=== PATIENT | female | born 1950 | race Caucasian/White ===

== ENCOUNTER 2017-12-19 20:17 | Emergency (ER) | payer MEDICARE ==
[~2017-12-19] VITALS: Ht 162.6 cm; Wt 99.8 kg
[~2017-12-19 20:17] MED LIST: ALBU90OI INH; ALBU90OI6 INH; Accuneb1.25 MG/3 INH; CYAN1000 PO; Duoneb 2.5-0.5 M3 ML INH; ERGO400 PO; FISH1000 PO; GINKO BILOBA; IRON; LISI20 PO; PYRI100 PO; Prednisone20 MG PO; Prednisone50 MG PO; Pulmicort Flex90 MCG INH; TOCO400 PO; Ventolin5 MG/1 ML INH; Vitamin C100 M1 PO
[2017-12-19 20:55] LABS: BASOPHILS ABSOLUTE AUTO 0.11 K/mm3 (0.00-0.23); BASOPHILS PERCENT AUTO 1 % (0-2); EOSINOPHILS ABSOLUTE AUTO 0.49 K/mm3 (0.00-0.68); EOSINOPHILS PERCENT AUTO 6 % (0-6); Hematocrit 50.3 % (33.0-51.0); Hemoglobin 16.6 g/dL (11.5-16.0); IMMATURE GRAN ABSOLUTE AUTO 0.02 K/mm3 (0.00-0.10); IMMATURE GRAN PERCENT AUTO 0 % (0-1); LYMPHOCYTES ABSOLUTE AUTO 1.68 K/mm3 (0.84-5.20); LYMPHOCYTES PERCENT AUTO 22 % (21-46); MONOCYTES ABSOLUTE AUTO 0.59 K/mm3 (0.16-1.47); MONOCYTES PERCENT AUTO 8 % (4-13); Mean Corpuscular HGB 30.3 pg (26.0-34.0); Mean Corpuscular Volume 92 fL (80-100); Mean Platelet Volume 10.8 fL (9.1-12.4); NEUTROPHILS ABSOLUTE AUTO 4.78 K/mm3 (1.96-9.15); NEUTROPHILS PERCENT AUTO 62 % (41-73); Platelet Count 217 K/mm3 (150-400); RDW Coefficient Variation 12.8 % (11.7-14.2); RDW Standard Deviation 43.6 fL (35.1-46.3); Red Blood Cell Count 5.47 M/mm3 (3.80-5.20); White Blood Cell Count 7.67 K/mm3 (4.00-11.30)
[2017-12-19 21:15] LABS: Alanine Aminotransfer (ALT/SGP 32 U/L (12-78); Albumin, Blood 3.8 g/dL (3.4-5.0); Albumin/Globulin Ratio 0.8 (0.8-1.8); Alk Phos 79 U/L (50-136); Anion Gap 10 mmol/L (6-16); Aspartate Aminotrans (AST/SGOT 21 U/L (12-37); Bilirubin, Total 0.6 mg/dL (0.1-1.0); Blood Urea Nitrogen 9 mg/dL (8-24); Bun/Creatinine Ratio 12.1 (12.0-20.0); CO2, Blood 27 mmol/L (21-32); Calcium, Blood 9.1 mg/dL (8.5-10.1); Chloride, Blood 102 mmol/L (98-108); Creatinine, Blood 0.74 mg/dL (0.40-1.00); Globulin, Blood 4.6 g/dL (2.2-4.0); Glomerular Filtration Rate >60 (60-); Glucose, Blood 108 mg/dL (70-99); Potassium, Blood 3.6 mmol/L (3.5-5.5); Sodium, Blood 139 mmol/L (136-145); Total Protein, Blood 8.4 g/dL (6.4-8.2); Troponin I <0.015 ng/mL (0.000-0.040)
[2017-12-19 22:06] LABS: Source, Urine Clean Catch
[2017-12-19 22:08] LABS: Bilirubin, Urine Neg (Neg); Blood, Urine Neg (Neg); Glucose Qualitative, Urine Neg (Neg); Ketones, Urine Neg (Neg); Leukocyte Esterase, Urine Neg (Neg); Nitrite, Urine Neg (Neg); Protein, Urine 1+ (Neg); Urobilinogen, Urine NORM (Normal)
[2017-12-19 22:15] LABS: Appearance, Urine Clear (Clear); Color, Urine Yellow (P-Yellow)
[2017-12-19] MEDS ORDERED: Prednisone20 MG PO (23:28)
[2017-12-19] MEDS ORDERED: BENZ100A PO (23:28)
[2017-12-19] MEDS ORDERED: Mucinex600 MG PO (23:28)
[2018-10-25] MEDS ORDERED: ALBU90OI61 INH (19:26)
[2018-10-25] MEDS ORDERED: Prednisone20 MG PO (20:41)
[2018-10-25] MEDS ORDERED: Proventil5 MG/1 ML INH (20:41)
[2018-10-25] MEDS ORDERED: LEVO750 PO (20:41)
== END 2017-12-19 23:45 | disposition home or self-care (01) ==
LOC: ER 20:17
PROVIDERS: Emergency Medicine
DX: J45.901 Unspecified asthma with (acute) exacerbation (principal); Z79.899 Other long term (current) drug therapy; Z87.891 Personal history of nicotine dependence
CPT/HCPCS: 36415; 71046; 80053; 84484; 85025; 93005; 93010; 94640; 96374; 99283; J2930

== ENCOUNTER 2018-05-10 09:54 | Emergency (ER) | payer OTHER, MEDICARE ==
[~2018-05-10] VITALS: Ht 160 cm; Wt 101.6 kg
[~2018-05-10 09:54] MED LIST changes: +BENZ100A PO; +Mucinex600 MG PO
== END 2018-05-10 11:52 | disposition home or self-care (01) ==
LOC: ER 09:54
DX: S80.01XA Contusion of right knee, initial encounter (principal); W22.8XXA Striking against or struck by other objects, initial encounter; Z87.891 Personal history of nicotine dependence
CPT/HCPCS: 73562-RT; 73590; 99283

== ENCOUNTER 2019-09-26 23:15 | Emergency (ER) | payer OTHER ==
[~2019-09-26] VITALS: Ht 162.6 cm; Wt 99.8 kg
[~2019-09-26 23:15] MED LIST changes: +ALBU90OI61 INH; +LEVO750 PO; +Proventil5 MG/1 ML INH
[2019-09-27] MEDS ORDERED: Prednisone20 MG PO (00:13)
[2019-09-27] MEDS ORDERED: Flovent 44 mc10.6 GM INH (00:13)
== END 2019-09-27 00:37 | disposition home or self-care (01) ==
LOC: ER 23:15
DX: J45.901 Unspecified asthma with (acute) exacerbation (principal); Z87.891 Personal history of nicotine dependence
CPT/HCPCS: 94640; 99283-25; J7512

== ENCOUNTER 2022-05-26 04:54 | Emergency (ER) | payer MEDICARE, OTHER ==
[~2022-05-26] VITALS: Ht 162.6 cm; Wt 108.9 kg
[~2022-05-26 04:54] MED LIST changes: +Flovent 44 mc10.6 GM INH
[2022-05-26] MEDS ORDERED: PRED20 PO (08:06)
== END 2022-05-26 08:15 | disposition home or self-care (01) ==
LOC: ER 04:54
DX: J45.901 Unspecified asthma with (acute) exacerbation (principal); Z79.52 Long term (current) use of systemic steroids; Z79.899 Other long term (current) drug therapy
CPT/HCPCS: 71045; 94640; 94644; 94645; 94664; 99285-25; J7512

== ENCOUNTER 2022-09-26 11:38 | Emergency (ER) | payer MEDICARE, OTHER ==
[~2022-09-26] VITALS: Ht 160 cm; Wt 108.0 kg
[~2022-09-26 11:38] MED LIST changes: +PRED20 PO
[2022-09-26 12:44] LABS: BASOPHILS ABSOLUTE AUTO 0.12 K/mm3 (0.00-0.23); BASOPHILS PERCENT AUTO 2 % (0-2); EOSINOPHILS ABSOLUTE AUTO 1.12 K/mm3 (0.00-0.68); EOSINOPHILS PERCENT AUTO 15 % (0-6); Hematocrit 46.3 % (33.0-51.0); Hemoglobin 15.2 g/dL (11.5-16.0); IMMATURE GRAN ABSOLUTE AUTO 0.01 K/mm3 (0.00-0.10); IMMATURE GRAN PERCENT AUTO 0 % (0-1); LYMPHOCYTES ABSOLUTE AUTO 1.61 K/mm3 (0.84-5.20); LYMPHOCYTES PERCENT AUTO 21 % (21-46); MONOCYTES ABSOLUTE AUTO 0.77 K/mm3 (0.16-1.47); MONOCYTES PERCENT AUTO 10 % (4-13); Mean Corpuscular HGB Conc 32.8 g/dL (31.5-36.5); Mean Corpuscular Volume 95 fL (80-100); Mean Platelet Volume 10.6 fL (9.1-12.4); NEUTROPHILS ABSOLUTE AUTO 4.09 K/mm3 (1.96-9.15); NEUTROPHILS PERCENT AUTO 53 % (41-73); Platelet Count 197 K/mm3 (150-400); RDW Coefficient Variation 13.4 % (11.7-14.2); RDW Standard Deviation 47.3 fL (35.1-46.3); White Blood Cell Count 7.72 K/mm3 (4.00-11.30)
[2022-09-26 13:02] LABS: Albumin, Blood 3.3 g/dL (3.4-5.0); Albumin/Globulin Ratio 0.7 (0.8-1.8); Bilirubin, Total 0.5 mg/dL (0.1-1.0); Bun/Creatinine Ratio 14.3 (12.0-20.0); Calcium, Blood 9.1 mg/dL (8.5-10.1); Creatinine, Blood 0.84 mg/dL (0.40-1.00); Globulin, Blood 4.5 g/dL (2.2-4.0); Potassium, Blood 3.9 mmol/L (3.5-5.5); Total Protein, Blood 7.8 g/dL (6.4-8.2)
[2022-09-26] MEDS ORDERED: PRED20 PO (13:44)
== END 2022-09-26 14:08 | disposition home or self-care (01) ==
LOC: ER 11:38
PROVIDERS: Physician Assistant
DX: J45.901 Unspecified asthma with (acute) exacerbation (principal); Z79.52 Long term (current) use of systemic steroids
CPT/HCPCS: 36415; 71045; 80053; 84484; 85025; 93005; 93010; 94640; 94664; J2930; J3475

== ENCOUNTER 2025-09-18 08:22 | Day surgery (SDC) | payer MEDICARE, OTHER ==
[2025-09-18] VITALS (8 sets, daily range): BP systolic 100–139; BP diastolic 53–93
[~2025-09-18] VITALS: Ht 160 cm; Wt 96.9 kg
[~2025-09-18 08:22] MED LIST changes: +ASPI81CH PO; +EZET10; +EZET10 PO; +KOURZEQ5 GM; +KOURZEQ5 GM TOP; +LOSA25 PO; +MUPIROCIN1 G1; +NAPR500; +NAPR500 PO; +SEMAGLUTID0.25 MG/0.; +WEGOVY1 MG/0.5 M SC; +WEGOVY1.7 MG/0.7 SC
[2025-09-18] MEDS ORDERED: CeFAZolin Sodium 2,000 MG in NS 100 ML IV SCH ×2 (08:40→19:15)
[2025-09-18] MEDS ORDERED: Tranexamic Acid 100 ML IV SCH (08:40)
[2025-09-18] MEDS ORDERED: Ropivacaine 0.5% HCl/Pf 123.125 MG,EPINEPHrine HCL 0.25 MG,Ketorolac Tromethamine 15 MG... INFIL SCH (08:40)
[2025-09-18] MEDS ORDERED: Chlorhexidine Mouth Care 15 ML UDC MT SCH (08:40)
[2025-09-18] MEDS ORDERED: ROSUVASTATIN CAL5 MG PO (09:10)
[2025-09-18] MEDS ORDERED: Aspir 8181 MG PO (09:10)
[2025-09-18] MEDS ORDERED: EZET10 PO (09:12)
[2025-09-18] MEDS ORDERED: Percocet 5-3251 EACH PO (09:13)
--- NOTE | 2025-09-18 09:31 | NUR ---
Wheelchaired into Day Surgery. History, Chart, Medications and Allergies reviewed before start of procedure. Pre-Op teaching done. Pt verbalizes understanding. Patient States Post-Procedure ride home has been arranged.
[2025-09-18] MEDS ORDERED: Midazolam HCl 1MG / ML 2ML Vial ONE ×2 (11:02→11:34)
[2025-09-18] MEDS ORDERED: FentaNYL Citrate 50 MCG/ML 2 ML Injection ONE (11:02)
[2025-09-18] MEDS ORDERED: Phenylephrine HCl 100 MCG/ML-NS 10MLSYR (1MG/10ML) ONE (11:31)
[2025-09-18] MEDS ORDERED: FentaNYL Citrate 50 MCG/ML 2 ML Injection IV PRN ×2 (11:40→11:45)
[2025-09-18] MEDS ORDERED: Ondansetron HCl 2 MG / ML 2ML Vial IV PRN ×2 (11:45→11:55)
[2025-09-18] MEDS ORDERED: HYDROmorphone HCl/Pf 1MG SYR IV PRN ×3 (11:45→11:50)
[2025-09-18] MEDS ORDERED: FLU VACC TS2025(65UP)/MF59C/PF 45 MCG/0.5 ML SYRINGE IM SCH (11:50)
[2025-09-18] MEDS ORDERED: ePHEDrine Sulfate 50 MG/ML 1ML Injection ONE (11:53)
[2025-09-18] MEDS ORDERED: Magnesium Hydroxide Conc 10 ML UDC PO PRN (11:55)
[2025-09-18] MEDS ORDERED: Metoclopramide HCl 5MG / ML 2ML Vial IV PRN (11:55)
[2025-09-18] MEDS ORDERED: Ondansetron HCl 2 MG / ML 2ML Vial ONE (12:56)
--- NOTE | 2025-09-18 15:54 | NUR ---
PT ABLE TO VOID. PT ELECTS TO BYPASS PHYSICAL THERAPY. DC INSTRUCT REVEIWED. STATED UNDERSTANDING. DC'D TO POV VIA W/C.
== END 2025-09-18 16:01 | disposition home or self-care (01) ==
LOC: ORSCMMR 08:22 → ORD 10:15 → SURS 13:27 → ORSCMMR 16:01
PROVIDERS: Orthopaedic Surgery
PROC: 0SRC0JA Replacement of Right Knee Joint with Synthetic Substitute, Uncemented, Open Approach (ICD-10-PCS; principal; 2025-09-18 10:15)
DX: M17.11 Unilateral primary osteoarthritis, right knee (principal); I10 Essential (primary) hypertension; J45.909 Unspecified asthma, uncomplicated; E66.9 Obesity, unspecified; Z68.37 Body mass index [BMI] 37.0-37.9, adult; Z79.899 Other long term (current) drug therapy; Z96.652 Presence of left artificial knee joint
CPT/HCPCS: 73560-RT; A9270; C1776; J0166; J0690; J0735; J1885; J2250; J2371; J2405; J2704; J2795; J3010; J7120